=== PATIENT | male | born 1950 | race Caucasian/White ===

== ENCOUNTER 2020-10-21 20:57 | Inpatient (IN) | payer MEDICARE, OTHER ==
[~2020-10-21] VITALS: Ht 177.8 cm; Wt 75.3 kg
[2020-10-21] MEDS ORDERED: ASPI-610 PO (21:09)
--- NOTE | 2020-10-21 21:10 | NUR ---
Patient BIB private ambulance from [facility] on 5150 hold for DTS. Patient upon arrival A/Ox3 with no distress noted. Placed on room 2b.
[2020-10-21] MEDS ORDERED: MAGNESIUM HYDROXIDE 30 ML LIQUID UDC PO PRN (23:15)
[2020-10-21] MEDS ORDERED: MAG HYDROX/AL HYDROX/SIMETH 30 ML LIQUID UDC PO PRN (23:15)
[2020-10-21] MEDS ORDERED: ACETAMINOPHEN 325 MG TABLET PO PRN (23:15)
--- NOTE | 2020-10-21 23:19 | NUR ---
Transfered to MHU via wheelchair with no distress noted.
[2020-10-21 23:20] VITALS: BP 128/76
--- NOTE | 2020-10-21 23:55 | NUR ---
Admission Note: 70 y.o. male brought to MHU from ER via wheelchair accompanied by ER staff. Pt admitted on a 5150 for DTS under the care of Dr Soares and Dr Guevara. According to the 5150, Pt was found by PD and he stated that he wanted to by walking into traffic or overdosing on drugs. Upon admission to the unit, VS stable, no c/o pain, and A+Ox3 with poor insight. Ambulates with slow and weak, unsteady gait, PT ordered. Upon face to face evaluation, Pt stated he is here because the yeast maker found me and I told them I didnt want to be on this planet anymore. I got myself into some trouble. Pt denies any previous suicide attempts and denies any previous psych hospitalizations. Pt minimizes his statements made to the police, and appears superficially bright when telling his version of events, laughing at inappropriate times during the conversation. Denies current suicidal thoughts, plans, or ideations, but admits he made statements to the police that they may have taken wrong. Agrees to verbally contract for contract for safety inside the hospital, but may be unreliable for safety as he is and poor source for accurate information due to his dishonesty throughout the admission process. Pt stated he had no medical history and was not on any medications, and had never seen a psychiatrist; however several prescribed medications from a psychiatrist were found in his belongings during inventory. 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 Reports beyond major depression, feels hopeless, helpless, and lost. Triggers are homelessness, no social support/contacts, chronic pain, alcoholism, and the suicide of his sister several years ago. Pt reports drinking up to one liter of vodka daily and smokes 1.5 packs of cigarettes daily. C/o chronic insomnia and restlessness, Restoril 7.5mg and Ativan 1mg administered with good effect. Skin assessment completed with licensed staff-skin C/D/I. Medical h/o (B) knee replacement, arthritis, asthma, anxiety, major depression, and insomnia. Dr Soares and Dr Osei notified of admission, no home meds to reconcile, admitting orders received. Pt belongings inventoried, contraband placed in unit locker. Agreed to take PNA and flu vaccinations, ordered for the following day. Cooperative with admission process, and signed all paperwork. No family or contact information given, states he has no contact with his family. Patient Rights handbook and Advisement given to Pt, and patient rights explained, Pt verbalized understanding. Educated on unit rules, expectations, and hand/respiratory hygiene, Pt verbalized understanding. Oriented to the unit, the phone, the restrooms, and his room. Q 15 minute rounding initiated for safety. .
[2020-10-22] MEDS: TEMAZEPAM 7.5 MG CAPSULE PO PRN (00:14)
[2020-10-22] MEDS: LORAZEPAM 1 MG TABLET PO PRN ×2 (00:14→19:54)
[2020-10-22] MEDS: MULTIVITAMINS,THERAPEUTIC TABLET PO SCH ×2 (00:45→08:12)
[2020-10-22] MEDS: THIAMINE HCL 100 MG TABLET PO SCH ×2 (00:45→08:12)
[2020-10-22] MEDS: FOLIC ACID 1 MG TABLET PO SCH ×2 (00:45→08:12)
[2020-10-22 07:30] VITALS: BP 112/75
[2020-10-22] MEDS: NICOTINE 21 MG/24HR PATCH TD SCH (08:12)
[2020-10-22] MEDS ORDERED: INFLUENZA VACCINE 2020-2021 0.5 ML DISP.SYRIN IM ONE (09:00)
[2020-10-22] MEDS ORDERED: PNEUMOCOCCAL 23-VAL P-SAC VAC 0.5 ML VIAL IM ONE (09:00)
[2020-10-22] MEDS ORDERED: ASPIRIN EC 325 MG TABLET.DR PO PRN (13:45)
[2020-10-22] MEDS ORDERED: NICO-671 TP (13:46)
--- NOTE | 2020-10-22 15:03 | NUR ---
patient is alert and oriented x4. cooperative, redirectable, and has appropriate interaction with staff and peers. patient denies SI/HI, denies AH/VH. patient reports that he is "better" than on admission but continues to feel sad. patient is adherent with medication, no adverse reaction noted. Influence and Pneumococcal vaccine administered with no adverse reaction, patient provided with education. encouraged to participate in the unit groups and therapeutic milieu. patient is motivated to perform self care and AD"s.
[2020-10-22 15:56] VITALS: BP 132/77
[2020-10-22 20:00] VITALS: BP 130/75
[2020-10-22] MEDS: ESCITALOPRAM OXALATE 10 MG TABLET PO SCH (20:03)
[2020-10-22] MEDS: TRAZODONE 50 MG TABLET PO SCH (20:03)
[2020-10-23] MEDS: TEMAZEPAM 7.5 MG CAPSULE PO PRN (00:22)
[2020-10-23 07:14] LABS: CREATININE 0.8 mg/dL (0.6-1.3); MAGNESIUM 1.9 mg/dL (1.8-2.4); PHOSPHOROUS 3.4 mg/dL (2.5-4.9); POTASSIUM 4.1 mmol/L (3.5-5.1)
[2020-10-23 07:25] LABS: THYROID STIMULATING HORMONE 2.138 mIU/mL (0.358-3.740)
[2020-10-23 07:30] VITALS: BP 124/78
[2020-10-23 07:45] LABS: BASOPHILS % (AUTO) 0.6 % (0.0-2.0); EOSINOPHILS # (AUTO) 0.2 K/uL (0.0-0.7); EOSINOPHILS % (AUTO) 3.7 % (0.0-7.0); HEMOGLOBIN 13.2 g/dL (12.5-16.3); LYMPHOCYTES # (AUTO) 1.5 K/uL (20.0-40.0); MEAN CORPUSCULAR HEMOGLOBIN 34.9 uug (23.8-33.4); MEAN CORPUSCULAR HGB CONC 35 g/dL (32.5-36.3); MEAN CORPUSCULAR VOLUME 100.2 fL (73.0-96.2); MONOCYTES # (AUTO) 0.6 K/uL (2.0-10.0); MONOCYTES % (AUTO) 10.2 % (0.0-11.0); NEUTROPHILS # (AUTO) 3.4 K/uL (1.8-8.9); NEUTROPHILS % (AUTO) 59.5 % (38.5-71.5); PLATELET COUNT (AUTO) 227 K/uL (152-348); RED BLOOD CELL COUNT(AUTO) 3.79 MIL/uL (4.06-5.63); WHITE BLOOD COUNT (AUTO) 5.7 K/uL (3.6-10.2)
[2020-10-23] MEDS: MULTIVITAMINS,THERAPEUTIC TABLET PO SCH (08:07)
[2020-10-23] MEDS: FOLIC ACID 1 MG TABLET PO SCH (08:07)
[2020-10-23] MEDS: NICOTINE 21 MG/24HR PATCH TD SCH (08:07)
[2020-10-23] MEDS: THIAMINE HCL 100 MG TABLET PO SCH (08:07)
--- NOTE | 2020-10-23 13:34 | NUR ---
Family Contact: Pt does not have anyone for the SW to contact.
--- NOTE | 2020-10-23 13:34 | NUR ---
Initial Discharge Plan: Pt is currently homeless and states that he would like placement at a [facility] facility. SW will work with the pt and the MD regarding appropriate discharge planning. SW will form a safe and proper discharge.
[2020-10-23 16:00] VITALS: BP 135/76
--- NOTE | 2020-10-23 16:11 | NUR ---
Firearms Report: Auditing Manager completed and submitted a [employer] firearms report for 5150 danger to self certification. A copy of report has been placed in patient chart.
[2020-10-23 20:34] VITALS: BP 132/74
[2020-10-23] MEDS: TRAZODONE 50 MG TABLET PO SCH (21:00)
[2020-10-23] MEDS: ESCITALOPRAM OXALATE 10 MG TABLET PO SCH (21:00)
--- NOTE | 2020-10-24 06:26 | NUR ---
Patient alert x4.Denies SI/HI, denies AH/VH,has appropriate interaction with staff.Compliant with medication.Slept well through out the night for about 9 hrs.
[2020-10-24 07:30] VITALS: BP 160/82
[2020-10-24] MEDS: FOLIC ACID 1 MG TABLET PO SCH (09:37)
[2020-10-24] MEDS: MULTIVITAMINS,THERAPEUTIC TABLET PO SCH (09:37)
[2020-10-24] MEDS: NICOTINE 21 MG/24HR PATCH TD SCH (09:37)
[2020-10-24] MEDS: THIAMINE HCL 100 MG TABLET PO SCH (09:37)
--- NOTE | 2020-10-24 15:53 | NUR ---
SNF Referral: KALPANA faxed a referral to [facility] with attn to MICHELLE and [place] to the fax number: [phone].
[2020-10-24 20:00] VITALS: BP 120/75
[2020-10-24] MEDS: TRAZODONE 50 MG TABLET PO SCH (20:11)
[2020-10-24] MEDS: ESCITALOPRAM OXALATE 10 MG TABLET PO SCH (20:11)
[2020-10-25 07:30] VITALS: BP 122/78
[2020-10-25] MEDS: NICOTINE 21 MG/24HR PATCH TD SCH (09:01)
[2020-10-25] MEDS: FOLIC ACID 1 MG TABLET PO SCH (09:01)
[2020-10-25] MEDS: MULTIVITAMINS,THERAPEUTIC TABLET PO SCH (09:01)
[2020-10-25] MEDS: THIAMINE HCL 100 MG TABLET PO SCH (09:02)
--- NOTE | 2020-10-25 09:23 | NUR ---
SNF Contact: MICHELLE ([phone]) from [facility] contacted the SW and stated that the pt was accepted to their facility.
--- NOTE | 2020-10-25 10:48 | NUR ---
Probable Cause Hearing: Pts 5250 hold was upheld for grave disability. Certification was placed in the chart.
[2020-10-25 16:46] VITALS: BP 136/76
[2020-10-25 20:00] VITALS: BP 116/63
[2020-10-25] MEDS: ESCITALOPRAM OXALATE 10 MG TABLET PO SCH (20:27)
[2020-10-25] MEDS: TRAZODONE 50 MG TABLET PO SCH (20:27)
[2020-10-25] MEDS: ATORVASTATIN 10 MG TABLET PO SCH (21:13)
--- NOTE | 2020-10-26 06:31 | NUR ---
GPS: Pt.slept for 9.15 last night. Denies pain at this time. Less depressed when asked. Contracts for safety. Encouraged to get out of his room and attend daily activities. Safe environment provided.
[2020-10-26 07:30] VITALS: BP 114/59
[2020-10-26 08:15] LABS: BASOPHILS % (AUTO) 0.7 % (0.0-2.0); EOSINOPHILS # (AUTO) 0.3 K/uL (0.0-0.7); HEMATOCRIT 41.8 % (36.7-47.1); HEMOGLOBIN 14.6 g/dL (12.5-16.3); LYMPHOCYTES # (AUTO) 1.6 K/uL (20.0-40.0); LYMPHOCYTES % (AUTO) 30.1 % (20.5-51.5); MEAN CORPUSCULAR HEMOGLOBIN 34.7 uug (23.8-33.4); MEAN CORPUSCULAR HGB CONC 35 g/dL (32.5-36.3); MEAN CORPUSCULAR VOLUME 99.6 fL (73.0-96.2); MONOCYTES # (AUTO) 0.7 K/uL (2.0-10.0); MONOCYTES % (AUTO) 13.5 % (0.0-11.0); NEUTROPHILS # (AUTO) 2.8 K/uL (1.8-8.9); NEUTROPHILS % (AUTO) 50.7 % (38.5-71.5); PLATELET COUNT (AUTO) 308 K/uL (152-348); RED BLOOD CELL COUNT(AUTO) 4.19 MIL/uL (4.06-5.63); WHITE BLOOD COUNT (AUTO) 5.5 K/uL (3.6-10.2)
[2020-10-26] MEDS: MULTIVITAMINS,THERAPEUTIC TABLET PO SCH (08:53)
[2020-10-26] MEDS: FOLIC ACID 1 MG TABLET PO SCH (08:53)
[2020-10-26] MEDS: NICOTINE 21 MG/24HR PATCH TD SCH (08:53)
[2020-10-26] MEDS: ASPIRIN EC 81 MG TABLET.DR PO SCH (08:53)
[2020-10-26] MEDS: THIAMINE HCL 100 MG TABLET PO SCH (08:53)
[2020-10-26 09:13] LABS: BILIRUBIN,TOTAL 0.8 mg/dL (0.2-1.0); CREATININE 0.9 mg/dL (0.6-1.3); MAGNESIUM 2.2 mg/dL (1.8-2.4); PHOSPHOROUS 3.2 mg/dL (2.5-4.9); POTASSIUM 4.5 mmol/L (3.5-5.1); TOTAL PROTEIN, SERUM 6.5 g/dL (6.4-8.2)
[2020-10-26 16:43] VITALS: BP 109/64
[2020-10-26] MEDS: TRAZODONE 50 MG TABLET PO SCH (20:09)
[2020-10-26] MEDS: ESCITALOPRAM OXALATE 10 MG TABLET PO SCH (20:09)
[2020-10-26] MEDS: ATORVASTATIN 10 MG TABLET PO SCH (20:09)
[2020-10-26 20:16] VITALS: BP 112/74
[2020-10-27 07:30] VITALS: BP 91/58
[2020-10-27] MEDS: NICOTINE 21 MG/24HR PATCH TD SCH (08:49)
[2020-10-27] MEDS: THIAMINE HCL 100 MG TABLET PO SCH (08:49)
[2020-10-27] MEDS: MULTIVITAMINS,THERAPEUTIC TABLET PO SCH (08:49)
[2020-10-27] MEDS: ASPIRIN EC 81 MG TABLET.DR PO SCH (08:49)
[2020-10-27] MEDS: FOLIC ACID 1 MG TABLET PO SCH (08:49)
[2020-10-27 16:00] VITALS: BP 114/64
--- NOTE | 2020-10-27 17:30 | NUR ---
Gps/Appraiser Timber- Stayed in the dinning room most of the day, watching TV, attended group therapy, making his needs known to the staff.
[2020-10-27 19:30] VITALS: BP 108/67
[2020-10-27] MEDS: ESCITALOPRAM OXALATE 10 MG TABLET PO SCH (20:19)
[2020-10-27] MEDS: TRAZODONE 50 MG TABLET PO SCH (20:19)
[2020-10-27] MEDS: ATORVASTATIN 10 MG TABLET PO SCH (20:20)
--- NOTE | 2020-10-28 06:00 | NUR ---
Patient slept 9.00 hours. Prior to bed, patient spent time in the day room socializing with peers. Driver License Agent was able to engage with patient in meaningful conversation at which time patient denied SI. Patient also denied ever saying that he wanted to hurt himself as per the hold. Patient admits to being homeless and depressed. Continuing to monitor patient for safety and SI. Frequent rounding done. No acute issues at this time.
[2020-10-28 08:20] VITALS: BP 106/49
[2020-10-28] MEDS: NICOTINE 21 MG/24HR PATCH TD SCH (08:45)
[2020-10-28] MEDS: THIAMINE HCL 100 MG TABLET PO SCH (08:45)
[2020-10-28] MEDS: ASPIRIN EC 81 MG TABLET.DR PO SCH (08:45)
[2020-10-28] MEDS: MULTIVITAMINS,THERAPEUTIC TABLET PO SCH (08:45)
[2020-10-28] MEDS: FOLIC ACID 1 MG TABLET PO SCH (08:45)
[2020-10-28 16:11] VITALS: BP 125/79
[2020-10-28 20:13] VITALS: BP 123/69
[2020-10-28] MEDS: ATORVASTATIN 10 MG TABLET PO SCH (20:33)
[2020-10-28] MEDS: TRAZODONE 50 MG TABLET PO SCH (20:33)
[2020-10-28] MEDS: ESCITALOPRAM OXALATE 10 MG TABLET PO SCH (20:33)
[2020-10-29 07:59] VITALS: BP 97/55
[2020-10-29 08:00] VITALS: BP 97/55
[2020-10-29] MEDS: ASPIRIN EC 81 MG TABLET.DR PO SCH (08:28)
[2020-10-29] MEDS: FOLIC ACID 1 MG TABLET PO SCH (08:28)
[2020-10-29] MEDS: THIAMINE HCL 100 MG TABLET PO SCH (08:28)
[2020-10-29] MEDS: NICOTINE 21 MG/24HR PATCH TD SCH (08:28)
[2020-10-29] MEDS: MULTIVITAMINS,THERAPEUTIC TABLET PO SCH (08:28)
[2020-10-29 16:17] VITALS: BP 100/59
[2020-10-29] MEDS: TRAZODONE 50 MG TABLET PO SCH (20:17)
[2020-10-29] MEDS: ATORVASTATIN 10 MG TABLET PO SCH (20:17)
[2020-10-29] MEDS: ESCITALOPRAM OXALATE 10 MG TABLET PO SCH (20:17)
[2020-10-29 20:26] VITALS: BP 101/72
--- NOTE | 2020-10-30 05:51 | NUR ---
Patient slept 8.00 hours last night. No significant changes from previous assessment. Patient still depressed but denying SI. Continuing to monitor for safety.
[2020-10-30 07:30] VITALS: BP 98/63
[2020-10-30] MEDS: MULTIVITAMINS,THERAPEUTIC TABLET PO SCH (08:25)
[2020-10-30] MEDS: THIAMINE HCL 100 MG TABLET PO SCH (08:25)
[2020-10-30] MEDS: FOLIC ACID 1 MG TABLET PO SCH (08:25)
[2020-10-30] MEDS: ASPIRIN EC 81 MG TABLET.DR PO SCH (08:25)
[2020-10-30] MEDS: NICOTINE 21 MG/24HR PATCH TD SCH (08:25)
[2020-10-30 15:34] VITALS: BP 104/65
[2020-10-30 20:10] VITALS: BP 116/79
[2020-10-30] MEDS: TRAZODONE 50 MG TABLET PO SCH (20:14)
[2020-10-30] MEDS: ESCITALOPRAM OXALATE 10 MG TABLET PO SCH (20:14)
[2020-10-30] MEDS: ATORVASTATIN 10 MG TABLET PO SCH (20:15)
[2020-10-31 07:30] VITALS: BP 98/55
[2020-10-31] MEDS: FOLIC ACID 1 MG TABLET PO SCH (08:57)
[2020-10-31] MEDS: THIAMINE HCL 100 MG TABLET PO SCH (08:57)
[2020-10-31] MEDS: NICOTINE 21 MG/24HR PATCH TD SCH (08:57)
[2020-10-31] MEDS: ASPIRIN EC 81 MG TABLET.DR PO SCH (08:57)
[2020-10-31] MEDS: MULTIVITAMINS,THERAPEUTIC TABLET PO SCH (08:57)
[2020-10-31 15:53] VITALS: BP 118/66
[2020-10-31] MEDS: ATORVASTATIN 10 MG TABLET PO SCH (20:18)
[2020-10-31] MEDS: TRAZODONE 50 MG TABLET PO SCH (20:18)
[2020-10-31] MEDS: ESCITALOPRAM OXALATE 10 MG TABLET PO SCH (20:18)
[2020-10-31 21:15] VITALS: BP 131/62
--- NOTE | 2020-10-31 21:20 | NUR ---
PATIENT RECEIVED IN ACTIVITIES ROOM WATCHING TELEVISION. PATIENT IS CALM AND COOPERATIVE. PATIENT IS COMPLAINT WITH MEDICATION. NO AGGRESSIVE OR COMBATIVE BEHAVIOR NOTED.PATIENT DENIES SI. PATIENT IS ABLE TO MAKE NEEDS KNOWN. SAFE ENVIRONMENT PROVIDED, FREQUENT ROUNDING, AND CLUTTER FREE ENVIRONMENT. BED IN LOWEST POSITION, BED LOCKED, AND BED ALARM ON WHILE IN BED.
[2020-11-01 07:30] VITALS: BP 91/58
[2020-11-01] MEDS: FOLIC ACID 1 MG TABLET PO SCH (08:19)
[2020-11-01] MEDS: ASPIRIN EC 81 MG TABLET.DR PO SCH (08:19)
[2020-11-01] MEDS: MULTIVITAMINS,THERAPEUTIC TABLET PO SCH (08:19)
[2020-11-01] MEDS: THIAMINE HCL 100 MG TABLET PO SCH (08:19)
[2020-11-01] MEDS: NICOTINE 21 MG/24HR PATCH TD SCH (08:20)
--- NOTE | 2020-11-01 14:39 | NUR ---
Individual Counseling: automotive worker foreman met with patient for brief counseling to help address patients presenting problem SI. Patient presented with euthymic mood. Patient expressed that he "no longer feels depressed and has been improving at the hospital". This SW actively listened and provided support.
[2020-11-01 16:48] VITALS: BP 119/66
[2020-11-01 20:13] VITALS: BP 109/62
[2020-11-01] MEDS: ATORVASTATIN 10 MG TABLET PO SCH (20:19)
[2020-11-01] MEDS: ESCITALOPRAM OXALATE 10 MG TABLET PO SCH (20:19)
[2020-11-01] MEDS: TRAZODONE 50 MG TABLET PO SCH (20:19)
--- NOTE | 2020-11-01 21:42 | NUR ---
Received pt watching tv in the activity room. No acute distress noted. Denies SI. Pt safely went back to bed. Meds given as ordered, tolerated well. Pt is compliant with care. Uses walker to ambulate. Safety measures maintained. Will continue to monitor.
[2020-11-02 07:30] VITALS: BP 131/66
--- NOTE | 2020-11-02 08:17 | NUR ---
Discharge Note: Patient will be discharged to residential facility to [facility] [address] [place] [address]; ) via ambulance transportation at 2PM. Hair Stylist spoke with MICHELLE, Oyster Grower at [facility]; ([phone]), who stated patient will be accepted at facility today. Patient does not have any family members. Patient is alert and oriented x3, and is not able to plan for self-care at this time, but is willing to accept care provided for her at the facility. Patient denies any suicidal or homicidal ideations. Patient is aware and agreeable with discharge plans. Patient will continue to follow-up with her (Psychiatrist) Dr. Soares and (Bartender Manager) Dr. Mejia at [facility] [address] [place] [address]; ). Patient will follow-up at the center. Patient presents with euthymic and congruent mood. Patient signed the homeless waiver upon discharge and a copy was placed in the chart. Homeless resources were provided and include [address] line for shelters and homeless resources. A copy of all resources given to patient was also placed in the chart.
[2020-11-02] MEDS: THIAMINE HCL 100 MG TABLET PO SCH (08:26)
[2020-11-02] MEDS: ASPIRIN EC 81 MG TABLET.DR PO SCH (08:26)
[2020-11-02] MEDS: NICOTINE 21 MG/24HR PATCH TD SCH (08:26)
[2020-11-02] MEDS: MULTIVITAMINS,THERAPEUTIC TABLET PO SCH (08:26)
[2020-11-02] MEDS: FOLIC ACID 1 MG TABLET PO SCH (08:26)
--- NOTE | 2020-11-02 14:14 | NUR ---
Gps/Clinical Researcher- Discharged planning in progress, All belongings given back to patient. patient will be discharged to [facility]..Called the facility and report was given to Kathryn Guerrero .
--- NOTE | 2020-11-02 15:25 | NUR ---
Gps/salesperson terrazzo tiles- Discharged to [facility] via ambulance, pt. in good spirit, no c/o offered, all belongings/valuables signed and given back to patient .
== END 2020-11-02 15:22 | DRG 885 ==
LOC: ER 20:59 → GPS 23:06
PROVIDERS: ADMIT Psychiatry & Neurology Psychiatry; ATTEND Student in an Organized Health Care Education/Training Program
DX: F33.2 Major depressive disorder, recurrent severe without psychotic features (principal); R45.851 Suicidal ideations; F25.9 Schizoaffective disorder, unspecified; Z59.0 Homelessness; F17.210 Nicotine dependence, cigarettes, uncomplicated; E78.5 Hyperlipidemia, unspecified; J45.909 Unspecified asthma, uncomplicated; M19.90 Unspecified osteoarthritis, unspecified site; F10.10 Alcohol abuse, uncomplicated; Z20.822 Contact with and (suspected) exposure to COVID-19; D75.89 Other specified diseases of blood and blood-forming organs
CPT/HCPCS: 36415; 70450; 71045; 83735; 84100; 84443; 85025; 90686; 90732; 93005; A4663